=== PATIENT | male | born 1960 | race Caucasian/White ===

== ENCOUNTER → 2018-02-11 | Day surgery (SDC) | payer OTHER ==
[~2018-02-11] MED LIST: FENTANYL CITRATE/PF 100MCG/2 ML INJ ONE; HYDROCHLOROTH12.5 M1 PO; HYOSCYAMINE SULFATE 0.5 MG/ML INJ ONE; LIPITOR10 MG PO; LOSARTAN POTAS100 MG PO; METFORMIN HCL500 MG PO; MIDAZOLAM HCL 2 MG/2 ML VIAL ONE; PROPOFOL IV EMULSION 10 MG/ML 50 ML VIAL ONE
--- OUTSIDE RECORDS SUMMARY | 2018-02-11 05:17 | XMS REPORT | Clinical Summary ---
Author Author [facility] Organization [facility] Address Unknown Phone Unavailable Care Team Providers Care Coffee Blender Name Role Phone Bryan Rodas PCP Allergies No Known Allergies Medications End Date Status Medication Sig Dispensed Refills Start Date Active hydroCHLOROthiazide TK 1 C PO QD 3 (MICROZIDE) 12.5 mg 6 capsule Active enalapril (VASOTEC) 10 MG TK 1 T PO BID 2 tablet 6 Active atorvastatin (LIPITOR) 10 TK 1 T PO QD 3 MG tablet 6 06/06/2018 Active traMADol (ULTRAM) 50 mg Take 1 tablet 60 tablet 0 tablet (50 mg total) 8 by mouth every 4 (four) hours as needed for moderate pain. 06/11/2017 methylPREDNISolone Take 1 tablet 21 tablet 0 (MEDROL DOSEPAK) 4 mg (4 mg total) 8 tablet by mouth See Admin Instructions for 5 days. Use as directed by package instructions 07/06/2017 methocarbamol Take 1 tablet 120 tablet 0 (ROBAXIN-750) 750 MG (750 mg 8 tablet total) by mouth 4 (four) times a day for 30 days. Status Hospital, Clinic, or Ordered Dose Route Frequency Start End Date Other Facility Date Administered Medication Active triamcinolone acetonide 40 mg IM once 07/06/19 (KENALOG-40) injection 40 17 mgIndications: Hart's neuroma of left foot Active ropivacaine (NAROPIN) 0.2 12 mg epid continuous 07/06/19 % epidural 12 17 mgIndications: Hart's neuroma of left foot Active triamcinolone acetonide 40 mg IM once 09/21/19 (KENALOG-40) injection 40 17 mgIndications: Hart's neuroma of left foot Active ropivacaine (NAROPIN) 0.2 12 mg epid continuous 09/21/19 % epidural 12 17 mgIndications: Hart's neuroma of left foot Active Problems Problem Noted Date 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 Encounters Care Team Description Date Type Specialty Miky Joe MD Cervical strain, initial encounter (Primary Dx) 06/06/2017 Office Visit Sports Medicine after 02/10/2017 Family History Medical History Relation Name Comments Hypertension Father Relation Name Status Comments Father Social History Date Tobacco Use Types Packs/Day Years Used Never Smoker Alcohol Use Drinks/Week oz/Week Comments Yes 2 Standard 1.2 drinks or equivalent Sex Assigned at Date Recorded Not on file Industry Job Start Date Occupation Not on file Not on file Not on file Travel End Travel History Travel Start No recent travel history available. Last Filed Vital Signs Not on file Plan of Treatment Health Maintenance Due Date Last Done Comments COLON CANCER SCREENING 2008 SHINGLES VACCINES (1 of 2008 2) INFLUENZA VACCINE 09/25/2017 Procedures Comments Procedure Name Priority Date/Time Associated Diagnosis XR CERVICAL SPINE 2 OR 3 Routine 06/06/2017 Cervical strain, initial VW 2:55 PM CDT encounter after 02/10/2017 Results * XR Cervical Spine 2 Or 3 Vw (06/06/2017 2:55 PM CDT) Narrative Performed At [facility] Scattered facet joint arthritis. No obvious fractures or dislocations Performing Organization Address [facility] [address] [place] [address] after 02/10/2017 Insurance Payer Benefit Subscriber ID Type Phone Address Plan / Group CIGNA CIGNA OPEN xxxxxxxxx O ACCESS/NET WORK Advance Directives Patient has advance care planning documents on file. For more information, adali matta contact: Prudencio Lincoln [address] [place] [address]
--- NOTE | 2018-02-11 07:15 | NUR ---
SPIRITUAL CARE - Pre-Surgery Assessment: Pt in bed. Pt's at bedside. Pt reported supportive attention from family and friends. Intervention: I provided pastoral presence, hospitality, sympathetic listening, and prayer. I acquainted pt with availability of decorating equipment setter while hospitalized. Outcome: Pt expressed appreciation for visit. No need for follow up indicated at this time. AMADO HOFF [employer] Spiritual Care Department O: [phone] Pager: [phone] ([phone] calling from)
[2018-02-11 09:35] VITALS: BP 127/86
== END | disposition home or self-care (01) ==
LOC: OR 05:14
PROVIDERS: ATTEND Internal Medicine Gastroenterology
DX: Z12.11 Encounter for screening for malignant neoplasm of colon (principal); D12.4 Benign neoplasm of descending colon; K29.70 Gastritis, unspecified, without bleeding; K29.80 Duodenitis without bleeding; K21.0 Gastro-esophageal reflux disease with esophagitis; K57.30 Diverticulosis of large intestine without perforation or abscess without bleeding; K64.8 Other hemorrhoids; I10 Essential (primary) hypertension; E78.00 Pure hypercholesterolemia, unspecified; G47.33 Obstructive sleep apnea (adult) (pediatric); E78.5 Hyperlipidemia, unspecified; E11.9 Type 2 diabetes mellitus without complications; Z01.810 Encounter for preprocedural cardiovascular examination; Z79.84 Long term (current) use of oral hypoglycemic drugs; Z68.30 Body mass index [BMI] 30.0-30.9, adult
CPT/HCPCS: 36415; 43239; 45384; 82948; 93005; J1980; J2250; 45378